=== PATIENT | female | born 1970 | race Caucasian/White ===

== ENCOUNTER → 2017-05-15 | Outpatient (CLI) | payer OTHER ==
[~2017-05-15] MED LIST: ALPRAZOLAM PO; BACTRIM DS TABL1 TAB PO; BAYER ASPIRIN325 M1 PO; FLEXERIL PO; GABAPENTIN100 M1 PO; IBUPROFEN PO; LISINOPRIL20 MG PO; LORTAB 5/500 TA1 TA2 PO; LORTAB 7.5-5001 TAB PO; MEDROL PO; METFORMIN HCL500 M1 PO; NORVASC PO; PRILOSEC PO; ROBITUSSIN-PE240 ML PO; SIMVASTATIN20 MG PO; VICODIN 5/500 T1 TAB PO; XANAX1 MG PO
--- NOTE | ~2017-05-15 | US98 ---
[facility] A Service of [facility] RADIOLOGY TEXT RESULTS PATIENT: JANEEN PERERA LOCATION: SGUS : 74 UNIT #: [id number] AGE: [address]: Crissy Power CARPENTER MATE SEX: F ORDER DR: [id number] [address] [address] [id number] O MR#: [id number] Acc #: [id number] NAME: JANEEN PERERA : 1970 SEX: F STUDY DATE/TIME: 05/15/2017 15:01 UNIT: SGUS ROOM: STUDY DESCRIPTION: US Pelvic Non-OB Complete Attending Physician: Crissy Power A.P.R.N. Referring Physician: Crissy Power A.P.R.N. Ordering Physician: Crissy Power A.P.R.N. Primary Care Physician: Crissy Power A.P.R.N. MEDICAL IMAGING REPORT This report is preliminary unless electronic signature is present. EXAM Transabdominal and transvaginal pelvic ultrasound 05/15/2017 HISTORY Right lower quadrant abdominal and pelvic pain for 2 years. Total hysterectomy 9 years ago. FINDINGS Transabdominal and transvaginal pelvic ultrasound was performed. Endovaginal ultrasound was performed for attempted better visualization of the adnexal structures. The bladder is normal in appearance. The uterus is surgically absent as per patient history and the vaginal cuff appears normal. The ovaries were not identified. No adnexal mass was seen and there is no free fluid in the pelvis. IMPRESSION 1. Surgical absence of the uterus. 2. The ovaries were not identified. No adnexal mass was seen. There is no free fluid in the pelvis. Dictated by... Jhonny Murphy M.D. THIS IS AN ELECTRONICALLY VERIFIED REPORT Jhonny Murphy M.D. at 05/16/2017 7:28 AM GWENDOLYN/michael TD: 05/16/2017 06:24 JOB #: [id number] MEDICAL IMAGING REPORT [facility] A Service of [facility] RADIOLOGY TEXT RESULTS PATIENT: JANEEN PERERA LOCATION: [facility] #: [id number] : 74 UNIT #: [id number] AGE: [address]: Crissy Power SEX: F ORDER DR: Page 1 of 1
== END | disposition home or self-care (01) ==
LOC: SGUS 10:30
DX: R10.31 Right lower quadrant pain (principal); Z90.710 Acquired absence of both cervix and uterus
CPT/HCPCS: 76830; 76856